=== PATIENT | female | born 1965 | race Caucasian/White ===

== ENCOUNTER 2016-07-08 18:32 | Emergency (ER) | payer OTHER ==
[~2016-07-08] VITALS: Ht 170.2 cm; Wt 135.2 kg
--- NOTE | 2016-07-08 19:29 | ED GI/GU/ABDOMINAL COMPLAINT ---
History of Present Illness General Chief Complaint: Abdominal Pain/Flank Pain Stated Complaint: DIARRHEA X 1 WEEK, CRAMPING Source: patient Exam Limitations: no limitations Vital Signs & Intake/Output Vital Signs & Intake/Output Vital Signs Date Time Temp Pulse Resp B/P Pulse O2 O2 Flow FiO2 Ox Delivery Rate 07/084 98.2 76 16 156/84 96 Room Air 07/08 1948 79 16 139/81 98 Room Air 07/08 1920 97 Room Air 07/08 1847 98.2 77 20 128/88 99 Room Air ED Intake and Output 07/09 0000 07/08 1200 Intake Total Output Total Balance Patient 298 lb Weight Allergies Coded Allergies: levofloxacin (From [employer]) (Intermediate, SEVERE DIARRHEA 07/08/16) ampicillin (UNKNOWN 07/08/16) Reconcile Medications Diphenoxylate HCl/Atropine (Lomotil 2.5-0.025 MG Tablet) 2.5 MG-0.025 MG TABLET 1 TAB PO 4 TIMES/DAY DIARRHEA TWENTY...[id number] Ondansetron (Zofran Odt) 4 MG TAB.RAPDIS 1 TAB SL TID NAUSEA Triage Note: TRIAGE: PT TO ER C/C LOW ABD CRAMPING, DIARRHEA, FEELING BLOATED AND GASSY. "I COULD FEEL MY STOMACH PULSATING". ALSO COMPLAINS OF CHILLS. ONSET MONDAY, SEEMED TO BE IMPROVING MONDAY BUT THEN WORSENING AGAIN. REPORTS MUCOUSY LOOSE STOOLS. DIARRHEA X 4 TODAY. DENIES VOMITING. Triage Nurses Notes Reviewed? yes ? n Is pt currently ? No Onset: Gradual Duration: day(s): Timing: recent history Quality/Severity: cramping Location: generalized abdomen Radiation: no radiation Activities at Onset: none Prior Abdominal Problems: none Modifying Factors: Worsens With: defecating. Associated Symptoms: abdominal pain HPI: 50 yo woman presents with 6 days of diffuse abdominal cramps, nausea, diarrhea, no vomiting, chills, dysuria, fever, chest pain. She is otherwise well. Past History Travel History Traveled to [place] past 21 day No Medical History Any Pertinent Medical History? see below for history Neurological: NONE EENT: NONE Cardiovascular: NONE Respiratory: asthma, obstructive sleep apnea, pulmonary embolism, USES CPAP Gastrointestinal: colitis Hepatic: cholelithiasis Renal: NONE Musculoskeletal: NONE Psychiatric: NONE Endocrine: NONE Blood Disorders: NONE Cancer(s): NONE AIRCRAFT POWERPLANT REPAIRER/Reproductive: NONE Surgical History Surgical History: none Psychosocial History What is your primary language Romanian Tobacco Use: Quit >30 days ago ETOH Use: occasional use Illicit Drug Use: denies illicit drug use Family History Hx Contributory? No Review of Systems Review of Systems Constitutional: Reports: no symptoms. EENTM: Reports: no symptoms. Respiratory: Reports: no symptoms. Cardiovascular: Reports: no symptoms. GI: Reports: no symptoms. Genitourinary: Reports: no symptoms. Musculoskeletal: Reports: no symptoms. Skin: Reports: no symptoms. Neurological/Psychological: Reports: no symptoms. Hematologic/Endocrine: Reports: no symptoms. Immunologic/Allergic: Reports: no symptoms. All Other Systems: Reviewed and Negative Physical Exam Physical Exam General Appearance: well developed/nourished, no apparent distress Head: atraumatic, normal appearance Eyes: Bilateral: normal appearance. Ears, Nose, Throat, Mouth: hearing grossly normal Neck: normal inspection Respiratory: normal breath sounds, chest non-tender, no respiratory distress, quiet respiration, lungs clear Cardiovascular: regular rate/rhythm Gastrointestinal: normal bowel sounds, soft, diffuse tenderness to palpation Back: normal inspection Extremities: normal range of motion Neurologic/Psych: no motor/sensory deficits, awake, alert, oriented x 3 Skin: intact, normal color, warm/dry Core Measures ACS in differential dx? No Severe Sepsis Present: No Septic Shock Present: No Progress Differential Diagnosis: diverticulitis, gastritis, hepatitis Plan of Care: Orders Procedure Date/time Status LIPASE 07/08 1928 Complete HEPATIC FUNCTION PANEL 07/08 1928 Complete CBC WITHOUT DIFFERENTIAL 07/08 1928 Complete BASIC METABOLIC PANEL 07/08 1928 Complete AMYLASE 07/08 1928 Complete Laboratory Tests 07/08/161947: Anion Gap 7, Estimated GFR > 60, BUN/Creatinine Ratio 21.7, Glucose 80, Calcium 9.8, Total Bilirubin 0.4, Direct Bilirubin 0.2, AST 18, ALT 40, Alkaline Phosphatase 113, Total Protein 6.9, Albumin 4.1, Amylase < 30 L, Lipase 49, CBC w Diff NO MAN DIFF REQ, RBC 4.84, MCV 73.0 L, MCH 23.4 L, RDW 17.2 H, MPV 8.0 , Gran % 66.7, Lymphocytes % 24.1, Monocytes % 6.7, Eosinophils % 2.0, Basophils % 0.5, Absolute Granulocytes 9.2 H, Absolute Lymphocytes 3.3, Absolute Monocytes 0.9 H, Absolute Eosinophils 0.3, Absolute Basophils 0.1, PUBS MCHC 32.1 L Diagnostic Imaging: Viewed by Me: CT Scan. Discussed w/RAD: CT Scan. Radiology Impression: ABD PELVIC CT... DIVERTICULOSIS W/O DIVERTICULITIS.... NO ACUTE DISEASE... FULL REPORT BELOW. Initial ED EKG: normal axis, normal intervals, normal p-waves, normal QRS complex, normal sinus rhythm Comments: PATIENT: RASHAD HOWE PRESENT AGE: 50 PATIENT ACCOUNT NO: [id number] : 63 LOCATION: [facility] ORDERING PHYSICIAN: NEYDA CRUMP MD SERVICE DATE: 07/08/16 EXAM TYPE: CAT - CT ABD & PELVIS W/O IV CONTRAS EXAMINATION: CT ABDOMEN AND PELVIS WITHOUT CONTRAST CLINICAL INFORMATION: Abdominal pain with diarrhea for 7 days. COMPARISON: None available. TECHNIQUE: Multidetector volumetric imaging was performed from the superior aspect of the liver through the pubic symphysis. Sagittal and coronal reformatted images were obtained on the technologist's workstation. FINDINGS: There is bandlike scarring versus atelectasis within the lingula. Lung bases are otherwise clear. There is diffuse hepatic steatosis with areas of geographic sparing. Gallbladder is surgically absent. Slight left adrenal gland thickening without a definite discrete mass. Limited evaluation of the unenhanced spleen and pancreas reveals no definite abnormality. The kidneys are symmetric in size without evidence of hydronephrosis or nephrolithiasis. The large and small bowel are normal in caliber without evidence of mechanical obstruction. Diverticulosis without evidence of acute diverticulitis. No focal inflammatory changes adjacent to the large or the small bowel. The appendix is normal. There is no free air and there is no intra-abdominal free fluid. No mesenteric or retroperitoneal adenopathy. There is an IVC filter in place. The uterus is surgically absent. No adnexal abnormality. No pelvic adenopathy. No free fluid within the pelvis. There are no acute osseous abnormalities. Small fat-containing umbilical hernia. IMPRESSION: - No acute findings. - Diverticulosis without evidence of acute diverticulitis. - Hepatic steatosis. - Cholecystectomy. DICTATED BY: CAROLE GARCIA MD DATE/TIME DICTATED:07/08/162040 PROFESSIONAL MODEL:KIT DATE/TIME TRANSCRIBED:07/08/162040 CONFIDENTIAL, DO NOT COPY WITHOUT APPROPRIATE AUTHORIZATION. <Electronically signed in Other Vendor System> SIGNED BY: CAROLE GARCIA MD 07/08/162051 Departure Departure Disposition: HOME OR SELF CARE Condition: Stable Clinical Impression Primary Impression: Gastroenteritis Referrals: WILSON GARCIA,AMY Merritt (PCP/Family) Departure Forms: Customer Survey General Discharge Information Prescriptions: Current Visit Scripts Diphenoxylate HCl/Atropine (Lomotil 2.5-0.025 MG Tablet) 1 TAB PO 4 TIMES/DAY #20 TAB TWENTY...[id number] Ondansetron (Zofran Odt) 1 TAB SL TID #10 TAB Ref 1 Comments pt feels better after supportive medications... benign labs,ct scan... pt safe for discharge with close follow up advised.
[2016-07-08 20:13] LABS: ABSOLUTE BASOPHIL COUNT 0.1 /CUMM (0.0-0.2); ABSOLUTE EOSINOPHIL COUNT 0.3 /CUMM (0.0-0.7); ABSOLUTE GRANULOCYTE CT 9.2 /CUMM (1.4-6.5); ABSOLUTE LYMPH COUNT 3.3 /CUMM (1.2-3.4); ABSOLUTE MONOCYTE COUNT 0.9 /CUMM (0.10-0.60); BASOPHIL % 0.5 % (0.0-2.0); GRANULOCYTE % 66.7 % (42.2-75.2); HEMATOCRIT 35.3 % (37-47); MEAN CORPUSCULAR HGB 23.4 PG (27.0-31.0); MEAN CORPUSCULAR HGB CONC 32.1 G/DL (33.0-37.0); PLATELET COUNT 392 /CUMM (130-400); RBC DISTRIBUTION WIDTH 17.2 % (11.5-14.5); RED BLOOD CELL CT 4.84 /CUMM (4.20-5.40); WHITE BLOOD CELL COUNT 13.8 /CUMM (4.8-10.8)
--- NOTE | 2016-07-08 20:52 | CT SCAN REPORT ---
EXAMINATION: CT ABDOMEN AND PELVIS WITHOUT CONTRAST CLINICAL INFORMATION: Abdominal pain with diarrhea for 7 days. COMPARISON: None available. TECHNIQUE: Multidetector volumetric imaging was performed from the superior aspect of the liver through the pubic symphysis. Sagittal and coronal reformatted images were obtained on the technologist's workstation. FINDINGS: There is bandlike scarring versus atelectasis within the lingula. Lung bases are otherwise clear. There is diffuse hepatic steatosis with areas of geographic sparing. Gallbladder is surgically absent. Slight left adrenal gland thickening without a definite discrete mass. Limited evaluation of the unenhanced spleen and pancreas reveals no definite abnormality. The kidneys are symmetric in size without evidence of hydronephrosis or nephrolithiasis. The large and small bowel are normal in caliber without evidence of mechanical obstruction. Diverticulosis without evidence of acute diverticulitis. No focal inflammatory changes adjacent to the large or the small bowel. The appendix is normal. There is no free air and there is no intra-abdominal free fluid. No mesenteric or retroperitoneal adenopathy. There is an IVC filter in place. The uterus is surgically absent. No adnexal abnormality. No pelvic adenopathy. No free fluid within the pelvis. There are no acute osseous abnormalities. Small fat-containing umbilical hernia. IMPRESSION: - No acute findings. - Diverticulosis without evidence of acute diverticulitis. - Hepatic steatosis. - Cholecystectomy.
[2016-07-08] MEDS ORDERED: ZOFRAN ODT4 M1 SL (21:51)
[2016-07-08] MEDS ORDERED: LOMOTIL 2.5-0.1 EACH PO (21:51)
[2016-07-08 22:04] VITALS: BP 156/84
== END 2016-07-08 22:20 ==
LOC: ERH 18:32
PROVIDERS: Pediatrics
DX: K52.9 Noninfective gastroenteritis and colitis, unspecified (principal)
CPT/HCPCS: 74176; 96374

== ENCOUNTER 2016-07-28 23:47 | Emergency (ER) | payer OTHER ==
[~2016-07-28] VITALS: Ht 170.2 cm; Wt 131.5 kg
[~2016-07-28 23:47] MED LIST: LOMOTIL 2.5-0.1 EACH PO; ZOFRAN ODT4 M1 SL
--- NOTE | 2016-07-29 00:21 | ED CARDIAC/CP/PALPITATIONS ---
History of Present Illness General Chief Complaint: Palpitations Stated Complaint: HEART PALPITATIONS PAST 40MINS Source: patient, family, old records Exam Limitations: no limitations Vital Signs & Intake/Output Vital Signs & Intake/Output Vital Signs Date Time Temp Pulse Resp B/P B/P Pulse O2 O2 Flow FiO2 Mean Ox Delivery Rate 07/29 0221 97.2 96 20 112/66 96 Nasal 2.0L Cannula 07/29 0210 98 96 Nasal 2.0L Cannula 07/29 0144 98 132/90 94 Nasal 2.0L Cannula 07/29 0058 113 148/88 07/29 0044 108 146/88 07/29 0022 156 20 146/90 97 Nasal 2.0L Cannula 07/29 0016 158 07/28 2358 96.8 160 18 162/102 96 Nasal 2.0L Cannula ED Intake and Output 07/29 0000 07/28 1200 Intake Total Output Total Balance Patient 290 lb Weight Weight Reported by Patient Measurement Method Allergies Coded Allergies: levofloxacin (From [employer]) (Intermediate, SEVERE DIARRHEA 07/28/16) ampicillin (UNKNOWN 07/28/16) Reconcile Medications Diphenoxylate HCl/Atropine (Lomotil 2.5-0.025 MG Tablet) 2.5 MG-0.025 MG TABLET 1 TAB PO 4 TIMES/DAY DIARRHEA TWENTY...[id number] Ondansetron (Zofran Odt) 4 MG TAB.RAPDIS 1 TAB SL TID NAUSEA Triage Note: TRIAGE: PATIENT TO ER FROM HOME REPORTS +PALPITATIONS X 40 MINUTES, "WOKE UP TO GO TO THE BATHROOM WHEN THEY FLUTTERS STARTED." DENIES CARDIAC HISTORY/ AFIB. PATIENT REPORTS "WAS ON A HEART MONITOR FOR A MONTH AND THEY FOUND I WAS HAVING ALOT OF PVCS." ALSO REPORTS "TOOK A XANAX AT 10PM," PRIOR TO ONSET OF SX. ALSO REPORTING URINARY FREQUENCY (3 X 1 HOUR), DENIES BURNING W/ URINATION. Triage Nurses Notes Reviewed? yes Onset: Just prior to arrival Duration: minute(s):, constant, continues in ED Timing: recent history Quality/Severity: moderate, severe Location: substernal Radiation: no radiation Activities at Onset: rest Prior Chest Pain/Card Workup: echocardiography, event monitor Modifying Factors: Worsens With: exercise. Nitro Today/Relief: no nitro taken today Aspirin Today: no aspirin today Associated Symptoms: weakness LMP (ages 10-50): post menopausal : No Patient currently breastfeeds: No HPI: 40 minutes prior to admission patient went to the bathroom developed rapid irregular palpitations with weakness. She also complains of urinary frequency without dysuria. She reports having Holter monitor and event monitor demonstrating PVCs. She denies fever chills nausea vomiting diarrhea abdominal pain chest pain shortness of breath headache rash bleeding. Past History Travel History Traveled to [place] past 21 day No Medical History Any Pertinent Medical History? see below for history Neurological: NONE EENT: NONE Cardiovascular: NONE Respiratory: asthma, obstructive sleep apnea, pulmonary embolism, USES CPAP Gastrointestinal: colitis Hepatic: cholelithiasis Renal: NONE Musculoskeletal: NONE Psychiatric: NONE Endocrine: NONE Blood Disorders: NONE Cancer(s): NONE CLEANING PROFESSIONAL/Reproductive: NONE Surgical History Surgical History: none Psychosocial History What is your primary language Slovak Tobacco Use: Refused to answer Family History Hx Contributory? No Review of Systems Review of Systems Constitutional: Reports: no symptoms. EENTM: Reports: no symptoms. Respiratory: Reports: no symptoms. Cardiovascular: Reports: see HPI, palpitations. GI: Reports: no symptoms. Genitourinary: Reports: see HPI, frequency. Musculoskeletal: Reports: no symptoms. Skin: Reports: no symptoms. Neurological/Psychological: Reports: no symptoms. Hematologic/Endocrine: Reports: no symptoms. Immunologic/Allergic: Reports: no symptoms. All Other Systems: Reviewed and Negative Physical Exam Physical Exam General Appearance: well developed/nourished, alert, awake, anxious, moderate distress, obese Head: atraumatic, normal appearance Eyes: Bilateral: normal appearance, PERRL, EOMI. Ears, Nose, Throat: normal pharynx, normal ENT inspection, hearing grossly normal Neck: normal inspection, supple, full range of motion, no midline tenderness Respiratory: normal breath sounds, chest non-tender, no respiratory distress, quiet respiration, lungs clear Cardiovascular: normal peripheral pulses, tachycardia, irregularly irregular, norml femoral pulses equa Peripheral Pulses: 4+ carotid (R), 4+ carotid (L) Gastrointestinal: normal bowel sounds, soft, non-tender, no organomegaly Back: normal inspection, normal range of motion Extremities: normal inspection, normal capillary refill, normal range of motion, no edema Neurologic/Psych: no motor/sensory deficits, awake, alert, oriented x 3, normal gait, normal mood/affect, lab assistant II-XII nml as tested Reflexes: 2+: bicep (R), bicep (L). Skin: intact, normal color, warm/dry Lymphatic: no anterior cervical sami Core Measures ACS in differential dx? Yes ASA ordered for poss ACS? No-ACS ruled out Severe Sepsis Present: No Septic Shock Present: No Progress Differential Diagnosis: AMI, atrial fibrillation, hyperkalemia Plan of Care: Orders Procedure Date/time Status EKG 07/29 020 Active URINALYSIS 07/30 19 Complete TROPONIN LEVEL 07/29 13 Complete MAGNESIUM 07/29 13 Complete COMPREHENSIVE METABOLIC PANEL 07/29 13 Complete CBC WITHOUT DIFFERENTIAL 07/29 13 Complete EKG 07/28 234 Active Laboratory Tests 07/29/16 0104: Urine Color STRAW, Urine Clarity CLEAR, Urine pH 7.0, Ur Specific Seth 1.010, Urine Protein TRACE H, Urine Ketones NEG, Urine Nitrite NEG, Urine Bilirubin NEG, Urine Urobilinogen 0.2, Ur Leukocyte Esterase NEG, Ur Microscopic SEDIMENT EXAMINED, Urine WBC RARE, Urine Hemoglobin NEG, Urine Glucose NEG 07/29/16 0041: Anion Gap 15, Estimated GFR > 60, BUN/Creatinine Ratio 26.0 H, Glucose 178 H, Calcium 9.1, Magnesium 2.0, Total Bilirubin 0.3, AST 21, ALT 37, Alkaline Phosphatase 117, Troponin I < 0.01, Total Protein 6.7, Albumin 3.9, Globulin 2.8 , Albumin/Globulin Ratio 1.4, CBC w Diff NO MAN DIFF REQ, RBC 4.77, MCV 73.0 L, MCH 23.6 L, RDW 18.0 H, MPV 8.3, Gran % 62.3, Lymphocytes % 28.2, Monocytes % 6.1, Eosinophils % 3.0, Basophils % 0.4, Absolute Granulocytes 6.3, Absolute Lymphocytes 2.8, Absolute Monocytes 0.6, Absolute Eosinophils 0.3, Absolute Basophils 0, PUBS MCHC 32.4 L Initial ED EKG: AFIB, nonspecific ST T wave chg Prior EKG: changed Repeat EKG: changed (nsr with ventricular trigeminy) Rhythm Strip: atrial fibrillation Comments: Converted to nsr with cardizem Departure Departure Time of Disposition: 248 Disposition: HOME OR SELF CARE Condition: Stable Clinical Impression Primary Impression: Atrial fibrillation with rapid ventricular response Referrals: WILSON GARCIA,AMY Merritt (PCP/Family) JESÚS CHAN MD Departure Forms: Customer Survey General Discharge Information Critical Care Note Critical Care Note Critical Care Time: 30-74 min (40)
[2016-07-29 01:07] LABS: ABSOLUTE BASOPHIL COUNT 0 /CUMM (0.0-0.2); ABSOLUTE EOSINOPHIL COUNT 0.3 /CUMM (0.0-0.7); ABSOLUTE GRANULOCYTE CT 6.3 /CUMM (1.4-6.5); ABSOLUTE LYMPH COUNT 2.8 /CUMM (1.2-3.4); ABSOLUTE MONOCYTE COUNT 0.6 /CUMM (0.10-0.60); BASOPHIL % 0.4 % (0.0-2.0); GRANULOCYTE % 62.3 % (42.2-75.2); HEMATOCRIT 34.8 % (37-47); MEAN CORPUSCULAR HGB 23.6 PG (27.0-31.0); MEAN CORPUSCULAR HGB CONC 32.4 G/DL (33.0-37.0); MEAN PLATELET VOLUME 8.3 FL (7.4-10.4); PLATELET COUNT 320 /CUMM (130-400); RED BLOOD CELL CT 4.77 /CUMM (4.20-5.40); WHITE BLOOD CELL COUNT 10.1 /CUMM (4.8-10.8)
[2016-07-29 03:19] VITALS: BP 120/68
== END 2016-07-29 03:23 ==
LOC: ERH 23:47
PROVIDERS: Emergency Medicine
DX: I48.91 Unspecified atrial fibrillation (principal)
CPT/HCPCS: 81001; 93005; 93010; 96374; 99291; J0153

== ENCOUNTER 2017-05-31 23:12 | Emergency (ER) | payer OTHER ==
[~2017-05-31] VITALS: Ht 170.2 cm; Wt 135.6 kg
[2017-05-31 23:31] LABS: ABSOLUTE BASOPHIL COUNT 0.1 /CUMM (0.0-0.2); ABSOLUTE EOSINOPHIL COUNT 0.4 /CUMM (0.0-0.7); ABSOLUTE GRANULOCYTE CT 6.6 /CUMM (1.4-6.5); ABSOLUTE LYMPH COUNT 3.1 /CUMM (1.2-3.4); ABSOLUTE MONOCYTE COUNT 0.8 /CUMM (0.10-0.60); BASOPHIL % 0.6 % (0.0-2.0); EOSINOPHIL % 3.3 % (0-5); GRANULOCYTE % 60.2 % (42.2-75.2); HEMATOCRIT 32.1 % (37-47); MEAN CORPUSCULAR HGB 23.9 PG (27.0-31.0); MEAN CORPUSCULAR HGB CONC 32.5 G/DL (33.0-37.0); MEAN CORPUSCULAR VOLUME 73.6 FL (81.0-99.0); MEAN PLATELET VOLUME 7.9 FL (7.4-10.4); PLATELET COUNT 326 /CUMM (130-400); RBC DISTRIBUTION WIDTH 17.2 % (11.5-14.5); RED BLOOD CELL CT 4.36 /CUMM (4.20-5.40); WHITE BLOOD CELL COUNT 10.9 /CUMM (4.8-10.8)
--- NOTE | 2017-06-01 01:33 | ED CARDIAC/CP/PALPITATIONS ---
History of Present Illness General Chief Complaint: Palpitations Stated Complaint: PALPITATIONS Source: patient, family, old records, Epic Exam Limitations: no limitations Vital Signs & Intake/Output Vital Signs & Intake/Output Vital Signs Date Time Temp Pulse Resp B/P B/P Pulse O2 O2 Flow FiO2 Mean Ox Delivery Rate 06/01 0128 75 20 137/77 96 Room Air 05/31 2329 97.6 88 20 148/85 97 Room Air ED Intake and Output 06/01 0000 05/31 1200 Intake Total Output Total Balance Patient 299 lb Weight Allergies Coded Allergies: levofloxacin (From [employer]) (Intermediate, SEVERE DIARRHEA 07/28/16) ampicillin (UNKNOWN 07/28/16) Reconcile Medications Diphenoxylate HCl/Atropine (Lomotil 2.5-0.025 MG Tablet) 2.5 MG-0.025 MG TABLET 1 TAB PO 4 TIMES/DAY DIARRHEA TWENTY...[id number] Ondansetron (Zofran Odt) 4 MG TAB.RAPDIS 1 TAB SL TID NAUSEA Triage Note: PT C/O PALPATATIONS THAT LASTED FOR APPROXIMATLY 45 MINUTES THIS EVENING. PT REPORTS SYMPTOMS HAVE SUBSIDED AT THIS TIME. PT REPORTS TAKING 1 50 MG METOPROLOL TAB THIS EVENING WITH HER NORMAL MEDICATIONS. RESPIRATIONS EVEN AND NON LABORED. SKIN IS PINK, WARM AND DRY. Triage Nurses Notes Reviewed? yes Onset: Evening Duration: hour(s):, better, constant, continues in ED Timing: recent history Quality/Severity: moderate Location: central Radiation: no radiation Activities at Onset: rest Prior Chest Pain/Card Workup: echocardiography Nitro Today/Relief: no nitro taken today Aspirin Today: no aspirin today LMP (ages 10-50): post menopausal : No Patient currently breastfeeds: No HPI: Several hours prior to admission patient complains of irregular heartbeat. She later took her metoprolol with some improvement in the regularity. She denies fever chills nausea vomiting diarrhea abdominal pain chest pain shortness of breath headache dysuria rash bleeding. Past History Travel History Traveled to [place] past 21 day No Medical History Any Pertinent Medical History? see below for history Neurological: NONE EENT: NONE Cardiovascular: NONE Respiratory: asthma, obstructive sleep apnea, pulmonary embolism, USES CPAP Gastrointestinal: colitis Hepatic: cholelithiasis Renal: NONE Musculoskeletal: NONE Psychiatric: NONE Endocrine: NONE Blood Disorders: NONE Cancer(s): NONE FRONT DESK COORDINATOR/Reproductive: NONE Surgical History Surgical History: none Psychosocial History What is your primary language Romanian Tobacco Use: Never used Family History Hx Contributory? No Review of Systems Review of Systems Constitutional: Reports: no symptoms. EENTM: Reports: no symptoms. Respiratory: Reports: no symptoms. Cardiovascular: Reports: see HPI, palpitations. GI: Reports: no symptoms. Genitourinary: Reports: no symptoms. Musculoskeletal: Reports: no symptoms. Skin: Reports: no symptoms. Neurological/Psychological: Reports: no symptoms. Hematologic/Endocrine: Reports: no symptoms. Immunologic/Allergic: Reports: no symptoms. All Other Systems: Reviewed and Negative Physical Exam Physical Exam General Appearance: well developed/nourished, alert, awake, anxious, mild distress, obese Head: atraumatic, normal appearance Eyes: Bilateral: normal appearance, PERRL, EOMI. Ears, Nose, Throat: normal pharynx, normal ENT inspection, hearing grossly normal Neck: normal inspection, supple, full range of motion, no midline tenderness Respiratory: normal breath sounds, chest non-tender, no respiratory distress, quiet respiration, lungs clear Cardiovascular: regular rate/rhythm, normal peripheral pulses, extra beats, norml femoral pulses equa Peripheral Pulses: 4+ carotid (R), 4+ carotid (L) Gastrointestinal: normal bowel sounds, soft, non-tender, no organomegaly Back: normal inspection, normal range of motion, no vertebral tenderness Extremities: normal inspection, normal capillary refill, normal range of motion, no edema Neurologic/Psych: no motor/sensory deficits, awake, alert, oriented x 3, normal gait, normal mood/affect, wrapper sheeter II-XII nml as tested Reflexes: 2+: bicep (R), bicep (L). Skin: intact, normal color, warm/dry Lymphatic: no anterior cervical sami Core Measures ACS in differential dx? No CVA/TIA Diagnosis No Sepsis Present: No Sepsis Focused Exam Completed? No Progress Differential Diagnosis: hyperkalemia, hypovolemia, PSVT, PVCs/PACs Plan of Care: Orders Procedure Date/time Status Add-on Test (ER Only) 06/01 0132 Active MAGNESIUM 05/31 2325 Complete TROPONIN LEVEL 05/31 2323 Complete COMPREHENSIVE METABOLIC PANEL 05/31 2323 Complete CBC WITHOUT DIFFERENTIAL 05/31 2323 Complete EKG 05/31 2313 Active Laboratory Tests 05/31/17 2326: Anion Gap 11, Estimated GFR > 60, BUN/Creatinine Ratio 28.3 H, Glucose 116 H, Calcium 9.5, Magnesium 1.9, Total Bilirubin 0.2, AST 16, ALT 25, Alkaline Phosphatase 101, Troponin I < 0.01, Total Protein 6.5, Albumin 3.9, Globulin 2.6 , Albumin/Globulin Ratio 1.5, CBC w Diff NO MAN DIFF REQ, RBC 4.36, MCV 73.6 L, MCH 23.9 L, MCHC 32.5 L, RDW 17.2 H, MPV 7.9, Gran % 60.2, Lymphocytes % 28.5 , Monocytes % 7.4, Eosinophils % 3.3, Basophils % 0.6, Absolute Granulocytes 6.6 H, Absolute Lymphocytes 3.1, Absolute Monocytes 0.8 H, Absolute Eosinophils 0.4, Absolute Basophils 0.1 Initial ED EKG: normal axis, normal intervals, normal p-waves, normal QRS complex, normal sinus rhythm, no ST T wave changes, PVCs Prior EKG: unchanged Rhythm Strip: normal sinus rhythm, PVC Departure Departure Time of Disposition: 224 Disposition: HOME OR SELF CARE Condition: Stable Clinical Impression Primary Impression: PVCs (premature ventricular contractions) Referrals: Norma GARCIA,Teresita Merritt (PCP/Family) Jarret Plasencia MD Departure Forms: Customer Survey General Discharge Information RELEASE- WORK Critical Care Note Critical Care Note Critical Care Time: non-applicable
[2017-06-01 02:38] VITALS: BP 132/70
== END 2017-06-01 02:39 ==
LOC: ERH 23:12
PROVIDERS: Emergency Medicine
DX: I49.3 Ventricular premature depolarization (principal)
CPT/HCPCS: 93005; 93010